=== PATIENT | female | born 1995 | race Caucasian/White ===

== ENCOUNTER 2017-04-15 12:47 | Emergency (ER) | payer BC ==
[~2017-04-15] VITALS: Ht 160 cm; Wt 68.2 kg
[2017-04-15 12:54] VITALS: TEMP 97.1
[2017-04-15] MEDS ORDERED: NUVARING VAG RING VG (12:58)
[2017-04-15] MEDS ORDERED: PROZAC 10MG10 MG (12:58)
[2017-04-15 14:08] LABS: COLLECTION METHOD CLEAN CATCH
[2017-04-15 14:15] LABS: BASO % 0.6 % (0.0-2.0); EOS # 0.1 (0.0-0.7); EOS % 1.9 % (0-4.0); GRAN % 56.3 % (42.2-75.2); HEMATOCRIT 38.4 % (37.0-47.0); HEMOGLOBIN 13.3 g/dl (12.5-16.0); LYMPH % 36.7 % (20.0-51.0); MEAN CELL VOLUME 93 fl (80.0-100.0); MEAN CORPUSCULAR HEMOGLOBIN 32 pg (27.0-31.0); MEAN CORPUSCULAR HGB CONC 35 g/dl (33.0-37.0); MONO # 0.2 (0.1-0.6); MONO % 4.3 % (1.7-9.3); PLATELET COUNT 223 K/mm3 (130-400); RED BLOOD COUNT 4.13 M/mm3 (4.10-5.30); REDCELL DISTRIBUTION WIDTH-CV 11.7 % (11.5-14.5)
[2017-04-15 14:15] LABS: PH 7 (5-8); SQUAMOUS EPITHELIAL 0-2 /hpf; URINE APPEARANCE Clear; URINE BACTERIA None Seen /hpf; URINE BILIRUBIN Negative (NEGATIVE); URINE BLOOD Negative (NEGATIVE); URINE COLOR Straw; URINE GLUCOSE Negative (NEGATIVE); URINE KETONE Negative (NEGATIVE); URINE LEUKOCYTE ESTERASE Trace (NEGATIVE); URINE NITRATE Negative (NEGATIVE); URINE PROTEIN(semi-quant) Negative (NEGATIVE); URINE RBC 0-2 /hpf; URINE UROBILINOGEN Negative (NEGATIVE)
[2017-04-15 14:27] LABS: ALANINE AMINOTRANSFERASE 27 U/L (9-52); ALBUMIN 4.3 gm/dL (3.5-5.0); ALKALINE PHOSPHATASE 62 U/L (50-136); ANION GAP 10 mmol/L (7-16); AST,SGOT 31 U/L (15-37); BILIRUBIN,TOTAL 0.5 mg/dL (0.0-1.0); BLOOD UREA NITROGEN 8 mg/dL (7-17); CALCIUM 9.2 mg/dL (8.4-10.2); CARBON DIOXIDE 24 mmol/L (22-30); CHLORIDE 103 mmol/L (98-107); CREATININE, serum 0.81 mg/dL (0.52-1.25); GLUCOSE 113 mg/dL (74-106); LIPASE 106 U/L (23-300); POTASSIUM 3.6 mmol/L (3.4-5.0); SODIUM 137 mmol/L (137-145); TOTAL PROTEIN 7.3 gm/dL (6.4-8.2)
[2017-04-15 14:40] LABS: TROPONIN-I < 0.012 ng/mL (0.000-0.034)
[2017-04-15] MEDS ORDERED: ZOFRAN 4MG T4 MG/TAB PO (15:46)
[2017-04-15] MEDS ORDERED: NORCO 325 MG-51 TAB PO (15:46)
[2017-04-15 15:59] VITALS: BP 111/76; PULSE 61
== END 2017-04-15 16:00 | disposition home or self-care (01) ==
LOC: COL.ER 12:47
PROVIDERS: Emergency Medicine
DX: R10.12 Left upper quadrant pain (principal); R07.89 Other chest pain; Z79.3 Long term (current) use of hormonal contraceptives; R93.5 Abnormal findings on diagnostic imaging of other abdominal regions, including retroperitoneum; R07.1 Chest pain on breathing; F32.9 Major depressive disorder, single episode, unspecified; Z88.1 Allergy status to other antibiotic agents; Z88.0 Allergy status to penicillin; Z88.8 Allergy status to other drugs, medicaments and biological substances
CPT/HCPCS: J1885; J2270; J2405; J7030